=== PATIENT | female | born 1990 | race Caucasian/White ===

== ENCOUNTER 2024-05-16 05:42 | Inpatient (IN) ==
[2024-05-16] MEDS ORDERED: OXYTOCIN 30 UNITS/NSS 30 UNITS/500 ML BAG IV PRN ×2 (08:16→15:39)
[2024-05-16] MEDS ORDERED: LIDOCAINE 1% LOCAL 20 ML VIAL INFIL PRN (08:16)
[2024-05-16 08:45] LABS: Hematocrit (blood only) 41.7 % (37.0-47.0); Mean Corpuscular Hgb Conc 33.6 g/dL (32.0-36.0); Mean Corpuscular Volume 92.5 fL (80.0-100.0); Mean Platelet Volume 10.2 fL (9.4-12.4); Platelet Count 270 K/uL (130-400); RDW Coefficient of Variation 12.8 % (11.5-14.5); RDW Standard Deviation 42.8 fL (36.4-46.3); Red Blood Count 4.51 M/uL (4.20-5.40); White Blood Count 11.39 K/ul (4.8-10.8)
[2024-05-16] MEDS: LACTATED RINGER'S 1,000 ML IV PRN (09:00)
--- NOTE | 2024-05-16 09:08 | History & Physical Report ---
Date of Service May 16, 2024 Assessment & Plan (1) Encounter for supervision of normal intrauterine in multigravida, antepartum: (2) Hypothyroidism affecting : Plan Birgit is a 33 y/o female currently at 39W2D GA with an BESS 05/21/24 as determined by LMP who is here for induction/. Her was complicated by hypothyroidism. Vitals and Hbg are stable. Consult anesthesiology for epidural per pt request Pitocin as needed to augment contractions Monitor vitals and FHT History of Present Illness Primary Care Provider: NO PCP Birgit is a 33 y/o female currently at 39W2D GA with an BESS 05/21/24 as determined by LMP who is here for . Her was complicated by GHTN and hypothyroidism. 5 minutes contractions; regular movement; no fluid loss; no bloody show External FHT and external uterine monitors used; Category 1 tracing; moderate FHT variability. Had regular appointments with OB. Labs: (02/2020) Blood type: O pos Antibody screen: neg H (today) Hct: 41.7% (today) WBC: 11.39 (today) Plt: 270 (today) Rubella: Immune VDRL/RPR: Non reactive Gonorrhea: Not detected Chlamydia: Not detected HIV: Negative HbSAg: Non reactive GBS: Negative Other screens: cff-DNA: _ (see scanned documents) Review of Systems (select bubbles): Denies fever, chills, sweats Denies shortness of breath, difficulty breathing, chest pain, palpitations, chest pressure. Denies breast pain. Denies dysuria. Denies headache or changes in vision. Physical Exam: General: Alert, oriented. No acute distress. Cardiac: Regular rate and rhythm, no murmurs/rubs/gallops. Respiratory: Clear to auscultation bilaterally a/p, no wheezes/rales/rhonchi. No increased work of breathing. Symmetrical chest rise. No respiratory distress. Abdomen: Gravid; FH _cm; _ FHTs; Position: _ Pelvic: Dilation _cm; Effacement _; Station _ per Lower Extremities: No lower extremity edema or swelling. No deep calf pain. Gabino's negative bilaterally Allergies Allergy/AdvReac Type Severity Reaction Status Date / Time latex Allergy hives Verified 05/15/24 11:25 Penicillins Allergy hives Verified 05/15/24 11:25 Home Medications Medication Instructions Recorded Confirmed Type prenat.vits,lowell,ily-xzge-gmnhe 1 tab PO DAILY 03/12/20 05/16/24 History aspirin 81 mg chewable tablet 81 mg PO DAILY 01/16/24 05/16/24 History Unithroid 150 mcg tablet 150 mcg PO DAILY #30 tabs 03/28/24 05/16/24 Rx (levothyroxine) Patient History Medical History (Updated 05/16/24 @ 09:07 by Shannon Blue DO) Gestational hypertension Congenital anomalies twin a, absence of one kidney Supervision of high risk , antepartum Donnie's disease Hypothyroidism (acquired) Monochorionic diamniotic twin , antepartum Health care maintenance Establishing care with new doctor, encounter for Abnormal Pap smear of cervix remote history of high grade lesion but due to age was followed with colpo and resolved and latest pap normal. Varicella vaccination Supervision of normal first Surgical History Hx of wisdom tooth extraction 2011 History of colposcopy 2015, 2017, 2018, 2019 S/P adenoidectomy 1995 S/P tonsillectomy 1995 Family History Mother Hypothyroid Father Hypothyroid Hypertension Dyslipidemia Sleep apnea Sister Epilepsy Asthma Food allergy Sister No problems noted. Brother Food allergy Aunt Thyroid cancer Other Myocardial infarction Denies family history of Ovarian cancer Prostate cancer Breast cancer Colorectal cancer Social History (Updated 01/16/24 @ 13:09 by Alida Staton RN) Smoking Status: Never smoker Do You Dip or Chew Tobacco: No; Hx Alcohol Use: No Hx Substance Use: No Preferred Language: British Communication Ability: Effective Gear Cutter Required: No Beliefs That Will Affect Care: None marital status: marital status details: Emil Loza (34) [phone] Current Living Situation: Spouse Current Living Situation Comment: 3yo twins current occupational status: employed current occupation: Speech Language Pathologist Feels Safe at Home: Yes Safety Concerns: Feels Safe At This Time Review of Systems Denies fever, chills, sweats Denies shortness of breath, difficulty breathing, chest pain, palpitations, chest pressure. Denies breast pain. Denies dysuria. Denies headache or changes in vision. Physical Exam Physical Exam: General: Alert, oriented. No acute distress. Cardiac: Regular rate and rhythm, no murmurs/rubs/gallops. Respiratory: Clear to auscultation bilaterally a/p, no wheezes/rales/rhonchi. No increased work of breathing. Symmetrical chest rise. No respiratory distress. Abdomen: Gravid; Pelvic: Dilation 5cm; Effacement 80%; Station -[address] Randolph Lower Extremities: No lower extremity edema or swelling. No deep calf pain. Gabino's negative bilaterally Results & Data Vital Signs (Past 12 Hours) Vital Signs Temp Pulse Resp BP 05/16/24 07:39 80 112/83 05/16/24 07:36 16 05/16/24 07:36 36.6 C 16 05/16/24 06:01 36.5 C 76 16 121/81 05/16/24 05:54 36.5 C 16 Code Status & VTE Plan VTE Prophylaxis Plan VTE Prophylaxis will be ordered: No Supervising Physician Co-Signing Physician Notes Resident Physician Supervision Note: I interviewed and examined the patient. Discussed with Dr. Blue and agree with findings and plan as documented in the note. Any exceptions or clarifications are listed here: Patient is a with iup at 39 weeks who presents to labor and delivery with labor. uncomplicated. Hx of ghtn, does not have in this . Made cervical change under obs. fetus category one. admit. epidural then plan arom. anticipate . Documented By: Orin Randolph MD, FACOG Resident Activity Tracking Resident Involvement: Resident Care Provided Care Provided: Adult Hospital Medicine
[2024-05-16] MEDS ORDERED: NALBUPHINE HCL INJ 10 MG/ML AMP IV PRN (11:06)
[2024-05-16] MEDS ORDERED: BUPIVACAINE 0.25% PF 30 ML VIAL EPI PRN (11:06)
[2024-05-16] MEDS ORDERED: LIDOCAINE 2% MPF LOCAL 5 ML VIAL EPI PRN (11:06)
[2024-05-16] MEDS ORDERED: fentaNYL citrate PF 100 MCG/2 ML VIAL EPI PRN (11:06)
[2024-05-16] MEDS ORDERED: NALOXONE HCL 0.4 MG/1 ML VIAL/CARP IV PRN (11:06)
[2024-05-16] MEDS ORDERED: ROPIVACAINE 0.5% PF 5 MG/ML 20 ML VIAL EPI PRN (11:06)
[2024-05-16] MEDS ORDERED: SODIUM CHLORIDE 0.9% PF INJ 10 ML VIAL EPI PRN (11:06)
[2024-05-16] MEDS ORDERED: NALOXONE HCL 1 MG in SODIUM CHLORIDE 0.9% 1,000 ML IV PRN (11:06)
[2024-05-16] MEDS ORDERED: ePHEDrine sulfate 50 MG/ML AMP IV PRN (11:06)
[2024-05-16] MEDS ORDERED: diphenhydrAMINE 50 MG/ML VIAL IV PRN (11:06)
[2024-05-16] MEDS ORDERED: fentANYL 2 MCG/ML BUPIVacaine 0.125%-NSS 100ML BAG EPI PRN (11:06)
--- NOTE | 2024-05-16 11:06 | Anesthesiology Consultation ---
Date of Service May 16, 2024 Assessment & Plan Chart Review Chart Review: Acceptable Risk for Labor Epidural Consults Requested none History Height/Weight Height: 5 ft 5 in Weight: 88.451 kg Allergies Allergy/AdvReac Type Severity Reaction Status Date / Time latex Allergy hives Verified 05/15/24 11:25 Penicillins Allergy hives Verified 05/15/24 11:25 Medications Home Medications Medication Instructions Recorded Confirmed Last Taken prenat.vits,lowell,sbp-wstd-blkjb 1 tab PO DAILY 03/12/20 05/16/24 05/15/24 aspirin 81 mg chewable tablet 81 mg PO DAILY 01/16/24 05/16/24 05/15/24 Unithroid 150 mcg tablet 150 mcg PO DAILY #30 tabs 03/28/24 05/16/24 05/15/24 (levothyroxine) Active Medications Generic Name Dose Route Start Last Admin Trade Name Freq PRN Reason Stop Dose Admin Lactated Ringer's 1,000 mls @ 125 mls/hr 05/16/24 08:16 05/16/24 09:00 Lr IV 05/18/24 08:15 999 mls/hr .Q8H PRN Administration L&D Protocol Protocol Past Medical History Medical History (Updated 05/16/24 @ 09:07 by Shannon Blue DO) Gestational hypertension Congenital anomalies twin a, absence of one kidney Supervision of high risk , antepartum Donnie's disease Hypothyroidism (acquired) Monochorionic diamniotic twin , antepartum Health care maintenance Establishing care with new doctor, encounter for Abnormal Pap smear of cervix remote history of high grade lesion but due to age was followed with colpo and resolved and latest pap normal. Varicella vaccination Supervision of normal first Past Family History Family History Mother Hypothyroid Father Hypothyroid Hypertension Dyslipidemia Sleep apnea Sister Epilepsy Asthma Food allergy Sister No problems noted. Brother Food allergy Aunt Thyroid cancer Other Myocardial infarction Denies family history of Ovarian cancer Prostate cancer Breast cancer Colorectal cancer Past Surgical History Surgical History Hx of wisdom tooth extraction 2011 History of colposcopy 2015, 2016, 2018, 2019 S/P adenoidectomy 1995 S/P tonsillectomy 1996 Social History Smoking Status: Never smoker Do You Dip or Chew Tobacco: No Hx Alcohol Use: No Hx Substance Use: No Physical Exam Vital Signs Last Vital Signs Temp 36.6 C 05/16/24 07:36 Pulse 78 05/16/24 11:04 Resp 16 05/16/24 07:36 BP 127/88 05/16/24 11:03 Pulse Ox 100 05/16/24 10:59 Testing Laboratory Results 05/16/24 08:31
[2024-05-16] MEDS: LIDOCAINE 2%/EPINEPHRINE 1:200,000 20 ML PF ONE (11:23)
[2024-05-16] MEDS: fentANYL 2 MCG/ML BUPIVacaine 0.125%-NSS 100ML BAG ONE (11:28)
[2024-05-16] MEDS: BUPIVACAINE 0.25% PF 30 ML VIAL ONE (11:35)
[2024-05-16] MEDS: fentaNYL citrate PF 100 MCG/2 ML VIAL ONE (11:35)
[2024-05-16] MEDS: SODIUM CHLORIDE 0.9% PF INJ 10 ML VIAL ONE (11:35)
[2024-05-16] MEDS: ePHEDrine sulfate 50 MG/ML AMP ONE (11:36)
--- NOTE | 2024-05-16 12:23 | Labor Progress Brief Note ---
Date of Service May 16, 2024 Subjective comfortable Assessment & Plan (1) Normal labor: Plan arom. ok for pitocin augmentation. fetus category one. anticipate . Admission and Anticipated Discharge Date Admission Date: May 16, 2024 Physical Exam Physical Exam: cx--6/80/-2 arom--clear toco--q3-5min efm-130s with mod variability, accels to 160s, no decels Results & Data Vital Signs (Past 12 Hours) Vital Signs Temp Pulse Resp BP Pulse Ox 05/16/24 12:19 79 100 05/16/24 12:14 67 99 05/16/24 12:11 74 122/73 05/16/24 12:09 78 100 05/16/24 12:04 78 100 05/16/24 12:00 16 05/16/24 12:00 36.7 C 16 05/16/24 11:59 74 100 05/16/24 11:56 67 108/69 05/16/24 11:54 91 H 100 05/16/24 11:49 78 100 05/16/24 11:45 18 05/16/24 11:45 18 05/16/24 11:44 76 100 05/16/24 11:41 77 112/75 05/16/24 11:39 80 100 05/16/24 11:38 78 115/69 05/16/24 11:37 16 05/16/24 11:37 16 05/16/24 11:36 78 114/68 05/16/24 11:34 74 116/69 100 05/16/24 11:33 16 05/16/24 11:33 16 05/16/24 11:32 83 115/74 05/16/24 11:30 83 111/72 05/16/24 11:29 91 H 100 05/16/24 11:28 74 16 120/73 05/16/24 11:24 76 100 05/16/24 11:19 71 100 05/16/24 11:18 80 125/86 05/16/24 11:14 81 100 05/16/24 11:09 78 100 05/16/24 11:04 78 100 05/16/24 11:03 79 127/88 05/16/24 10:59 76 100 05/16/24 10:52 74 100 05/16/24 10:48 63 126/80 05/16/24 10:47 61 100 05/16/24 10:42 72 100 05/16/24 10:37 76 100 05/16/24 10:33 65 121/80 05/16/24 10:32 66 100 05/16/24 10:27 75 05/16/24 10:22 77 05/16/24 10:17 72 05/16/24 10:12 73 05/16/24 10:07 78 05/16/24 10:02 71 05/16/24 07:39 80 112/83 05/16/24 07:36 16 05/16/24 07:36 36.6 C 16 05/16/24 06:01 36.5 C 76 16 121/81 05/16/24 05:54 36.5 C 16 Coding Level of Care Code None Diagnoses Normal labor O80; Z37.9
[2024-05-16] MEDS: OXYTOCIN 30 UNITS/NSS 30 UNITS/500 ML BAG IV PRN (13:31)
[2024-05-16] MEDS ORDERED: HYDROCORTISONE ACETATE 25 MG SUPP PR PRN (15:39)
[2024-05-16] MEDS ORDERED: BENZOCAINE 20% SPRY 85 APPLN/85 GM CAN EXT PRN (15:39)
[2024-05-16] MEDS ORDERED: bisacodyL 10 MG SUPP PR PRN (15:39)
[2024-05-16] MEDS ORDERED: oxyCODONE/ACETAMINOPHEN 5mg/325mg TAB PO PRN (15:39)
--- NOTE | 2024-05-16 15:41 | Delivery Summary ---
Vaginal Delivery Summary Date of Service May 16, 2024 Vaginal Delivery Summary and 1st Degree LAC Pre-operative Diagnosis: at 39 weeks labor Post-operative Diagnosis: same Procedure: epidural arom pitocin first degree laceration repair QBL: per measurements 1 cc, however I am called ebl 100cc Anesthesia: epidural Procedure: The patient presented to labor and delivery in labor. Got epidural. arom for clear fluid and just a bit of pitocin augmentation. The patient pushed for 2 contractions to deliver a viable female infant in zhen position. The nose and mouth were bulb suctioned on the perineum and the rest of the infant was then delivered without difficulty. The baby was vigorous. The nose and mouth were again bulb suctioned and the infant was placed in the maternal abdomen for drying and attention. Cord was clamped and cut at one minute of life. Cord blood and segment obtained. Placenta delivered spontaneous, intact with a three vessel cord. Cervix/sulci/rectum were intact. A first degree perineal laceration was repaired in the normal standard fashion. Hemostasis obtained with dilute pitocin and fundal massage. Apgars were 8/9. Mother and baby doing well at the end of the delivery. [facility] [place] Vaginal Delivery Charge Delivery Type Details: and 1st Degree LAC
--- NOTE | 2024-05-16 16:43 | Anesthesia Procedure Note ---
Date of Service May 16, 2024 Anesthesia Post Epidural Note Vital Signs Vital Signs: Temp Pulse Resp BP Pulse Ox 36.7 C 80 16 127/74 100 05/16/24 14:00 05/16/24 16:40 05/16/24 16:35 05/16/24 16:40 05/16/24 15:29 Notes Mental Status: alert / awake / arousable and participated in evaluation Nausea / Vomiting: adequately controlled Pain: adequately controlled Airway Patency, RR, SpO2: stable & adequate BP & HR: stable & adequate Hydration State: stable & adequate Neuraxial Anesthesia: was administered and sensory block is resolving Anesthetic Complications: no major complications apparent Epidural: Removed without complications and With tip intact
[2024-05-16] MEDS: IBUPROFEN 600 MG TAB PO PRN (17:04)
[2024-05-16] MEDS: ACETAMINOPHEN 325 MG TAB PO PRN (18:19)
[2024-05-16] MEDS: fentaNYL citrate PF 100 MCG/2 ML VIAL EPI STA (19:45)
[2024-05-16] MEDS: BUPIVACAINE 0.25% PF 30 ML VIAL EPI STA (19:45)
[2024-05-16] MEDS: SODIUM CHLORIDE 0.9% PF INJ 10 ML VIAL EPI STA (19:46)
[2024-05-16] MEDS: LIDOCAINE 2%/EPINEPHRINE 1:200,000 20 ML PF EPI STA (19:46)
[2024-05-16] MEDS: DOCUSATE SODIUM 100 MG CAP PO SCH (20:51)
[2024-05-16 21:24] VITALS: RESP 16
[2024-05-17] MEDS: LEVOTHYROXINE SODIUM 150 MCG TABLET PO SCH (04:58)
--- NOTE | 2024-05-17 05:38 | Obstetrical Progress Note ---
Date of Service May 17, 2024 Assessment & Plan (1) Encounter for care and examination after delivery: (2) Hypothyroidism affecting : Plan Pt is 33 yo post- day 1 s/p at 39w2d. complicated by hypothyroidism Encourage ambulation and breast feeding Tylenol 650mg and Ibuprofen 600mg as needed for pain Monitor vitals and Hbg Upon discharge, pt to follow up with Dr. Randolph in 6 weeks Admission and Anticipated Discharge Date Admission Date: May 16, 2024 Supervising Physician Co-Signing Physician Notes Resident Physician Supervision Note: I interviewed and examined the patient. Discussed with Dr. Blue and agree with findings and plan as documented in the note. Any exceptions or clarifications are listed here: Doing well. Routine care Documented By: Orin Randolph MD, FACOG Subjective Pt is 33 yo post- day 1 s/p at 39w2d. complicated by hypothyroidism Ambulation:In and out of room Voiding:voiding normally Passing gas: yes BM: no Diet tolerance:regular diet Lochia:bloody, no clots Feeding type: breast Current pain level: 3 /10 improved with ibuprofen Resting comfortably this morning in NAD. Denies COSME, CP, SOB, N/V/D, LE pain/swelling. Review of Systems Review of Systems: As per HPI Physical Exam Constitutional: WD/WN, vitals as above Respiratory: normal respiratory effort, lungs clear to auscultation Cardiovascular: RRR, no murmur, no edema Gastrointestinal (Abdomen): normal bowel sounds, soft, nontender, no hepatosplenomegaly Uterine fundus firm and at level of umbilicus Neurologic: PERRL, EOMI, accommodation nl, no face palsy, no dysarthria Moving all 4 extremities on command Psychiatric: A+Ox3, euthymic affect Results & Data Vital Signs (Past 12 Hours) Vital Signs Temp Pulse Pulse Resp BP BP Pulse Ox 05/17/24 04:00 37.1 C 73 16 118/76 99 05/16/24 23:24 36.8 C 71 16 107/70 99 05/16/24 21:10 36.5 C 69 16 124/80 98 05/16/24 18:00 36.6 C 68 18 121/77 98 05/16/24 18:00 05/16/24 17:38 75 115/73 O2 Del Method 05/17/24 04:00 Room Air 05/16/24 23:24 Room Air 05/16/24 21:10 Room Air 05/16/24 18:00 Room Air 05/16/24 18:00 Room Air 05/16/24 17:38 Resident Activity Tracking Resident Involvement: Resident Care Provided Care Provided: Adult Hospital Medicine and OB Delivery
[2024-05-17 07:25] LABS: Hematocrit (blood only) 37.8 % (37.0-47.0); Hemoglobin 12.7 g/dl (12.0-16.0); Mean Corpuscular Hemoglobin 31.3 pg (25.0-34.0); Mean Corpuscular Hgb Conc 33.6 g/dL (32.0-36.0); Mean Corpuscular Volume 93.1 fL (80.0-100.0); Mean Platelet Volume 10.3 fL (9.4-12.4); Platelet Count 236 K/uL (130-400); RDW Coefficient of Variation 12.9 % (11.5-14.5); RDW Standard Deviation 43.7 fL (36.4-46.3); Red Blood Count 4.06 M/uL (4.20-5.40); White Blood Count 13.49 K/ul (4.8-10.8)
[2024-05-17] MEDS: PRENATAL VITAMIN 1 TAB PO SCH (08:27)
[2024-05-17] MEDS ORDERED: DIPHTHER/TETAN/PERTUS Vaccine (Tdap, Adol/Adult) 0.5mL IM ONE (09:00)
[2024-05-17] MEDS ORDERED: NON-FORMULARY MEDICATION (Prenat.Vits,Cal,Min-Iron-Folic tablet) PO SCH (09:00)
[2024-05-17 12:11] VITALS: TEMP 99.3; O2SAT 98
[2024-05-17 15:17] VITALS: BP 127/85; PULSE 70
[2024-05-17] MEDS ORDERED: bisacodyL 5 MG TABEC PO SCH (20:00)
== END 2024-05-17 17:20 | disposition home or self-care (01) | DRG 807 ==
LOC: OPB 05:42 → 4S1 05:48 → 4E2 18:03